=== PATIENT | female | born 1945 | race Caucasian/White ===

== ENCOUNTER 2017-11-13 17:35 | Emergency (ER) | payer OTHER ==
[~2017-11-13] VITALS: Ht 162.6 cm; Wt 66.6 kg
[2017-11-13 19:59] LABS: HEMATOCRIT 38.1 % (36.0-46.0); HEMOGLOBIN 12.7 G/DL (11.9-15.5); MCH 28.2 PG (29.0-34.0); MCHC 33.3 G/DL (30.0-36.0); MCV 84.7 FL (83-99); PLATELET COUNT 235 K/uL (156-360); RBC DIS.WIDTH-CV 12.4 % (11.8-14.6); RBC DIS.WIDTH-SD 37.7 % (39-53); WHITE BLOOD COUNT 5.7 K/uL (4.1-10.2)
[2017-11-13 20:08] LABS: D-DIMER ELISA < 150.00 ng/mLDDU (<230)
[2017-11-13 20:09] LABS: ALBUMIN 4.4 g/dL (3.2-4.8); CHLORIDE 104 mEq/L (99-109); POTASSIUM 4.1 mEq/L (3.7-5.4); SODIUM 141 mEq/L (136-147)
[2017-11-13 20:11] LABS: GLUCOSE 92 mg/dL (70-99)
[2017-11-13 20:12] LABS: TOTAL PROTEIN 6.9 g/dL (6.4-8.3)
[2017-11-13 20:15] LABS: ALKALINE PHOSPHATASE 105 IU/L (3-129); CREATININE 0.7 mg/dL (0.6-1.3); GFR ESTIMATE (CALCULATED) > 59 mL/min/
[2017-11-13 20:16] LABS: UREA NITROGEN (BUN) 12 mg/dL (9-23)
[2017-11-13 20:17] LABS: AST (GOT) 15 IU/L (2-34)
[2017-11-13 20:18] LABS: ALT (GPT) 14 IU/L (3-49)
[2017-11-13 20:19] LABS: TROP-I INTERPRETATION NEGATIVE; TROPONIN-I < 0.01 ng/mL (0.0-0.30)
[2017-11-13 20:54] LABS: APPEARANCE CLEAR ((CLEAR)); BILIRUBIN NEGATIVE; BLOOD SMALL; COLOR YELLOW ((YELLOW)); GLUCOSE (STRIP) NEGATIVE; KETONES NEGATIVE; LEUKOCYTES MODERATE; NITRITE NEGATIVE; PROTEIN (STRIP) NEGATIVE; UROBILINOGEN 0.2 MG/DL (0.2-1.0)
[2017-11-13 21:02] LABS: BACTERIA NONE SEEN /HPF; EPITHELIAL CELLS RARE /HPF; MUCUS TRACE /LPF; RED BLOOD CELLS 0-5 /HPF (0-5); UCUL ADDED? YES
[2017-11-13] MEDS ORDERED: TRAMADOL HCL50 MG PO (22:09)
[2017-11-13] MEDS ORDERED: FLEXERIL5 MG PO (22:09)
[2017-11-13] MEDS ORDERED: CIPRO500 MG PO (22:14)
[2017-11-13 22:37] VITALS: BP 145/86
== END 2017-11-13 22:39 | disposition home or self-care (01) ==
LOC: EME 17:35
PROVIDERS: Physician Assistant
DX: N39.0 Urinary tract infection, site not specified (principal); R10.9 Unspecified abdominal pain; I10 Essential (primary) hypertension; K21.9 Gastro-esophageal reflux disease without esophagitis
CPT/HCPCS: 71046; 74176; 80053; 81003; 84484; 85027; 85379; 87086; 93005; 99281; 99284